=== PATIENT | male | born 1950 | race African-American/Black ===

== ENCOUNTER 2019-06-16 14:32 | Outpatient (CLI) | payer MEDICARE ==
--- NOTE | 2019-06-16 15:44 | ULT ---
Sonogram kidneys HISTORY: Hematuria. FINDINGS: Right kidney measures up to 9.7 cm and the left 10.4 cm. Each has a normal sonographic appe arance without evidence of mass, stone, or hydronephrosis. Prostate gland measures up to 6.6 cm and protrudes into the bladder base. IMPRESSION: No evidence of urinary tract obstruction. Enlarged prostate gland.
== END 2019-06-16 14:33 | disposition home or self-care (01) ==
LOC: BICULT 14:32
PROVIDERS: ATTEND Family Medicine
DX: R31.0 Gross hematuria (principal); N40.0 Benign prostatic hyperplasia without lower urinary tract symptoms
CPT/HCPCS: 76770

== ENCOUNTER 2020-12-06 13:50 | Outpatient (CLI) | payer MEDICARE ==
[2020-12-06 17:31] LABS: Bilirubin Neg (Negative); Blood, Urine Negative (Negative); Clarity Clear (Clear); Glucose, Urine (Dipstick) Normal (Negative); Ketone, Urine Negative (Negative); Leukocyte Negative (Negative); Nitrite Negative (Negative); Protein, Urine (Dipstick) Negative (Neg-Trace); Urobilinogen Normal mg/dL (Less than 2)
[2020-12-06 17:39] LABS: RBC/HPF None Seen HPF (0-3)
[2020-12-07 01:24] LABS: SARS-CoV-2 PCR by NAA Not Detected (NotDetected)
== END 2020-12-06 13:51 | disposition home or self-care (01) ==
LOC: LABBT 13:50
PROVIDERS: ATTEND Urology
DX: Z01.818 Encounter for other preprocedural examination (principal); R97.20 Elevated prostate specific antigen [PSA]; N40.0 Benign prostatic hyperplasia without lower urinary tract symptoms; Z20.822 Contact with and (suspected) exposure to COVID-19
CPT/HCPCS: 81001; 87086; 93005; U0003; U0005; 87635; 93010

== ENCOUNTER 2020-12-10 05:41 | Day surgery (SDC) | payer MEDICARE ==
[2020-12-06 13:01] VITALS: BMI 29.7
[2020-12-10] MEDS ORDERED: cefTRIAXone\\ROCEPHIN 2 GM VIAL ONE (06:06)
[2020-12-10] MEDS ORDERED: Sodium Chloride 0.9% 100 ML ONE (06:06)
[2020-12-10] MEDS ORDERED: Lidocaine 1% (PF) 30 ML VIAL ONE (06:47)
[2020-12-10] MEDS ORDERED: Propofol 1,000 MG/100 ML VIAL IV ONE ×2 (07:04→07:09)
[2020-12-10] MEDS ORDERED: Midazolam HCl 2 mg/2 ml Vial ONE (07:04)
[2020-12-10] MEDS ORDERED: Fentanyl 100 MCG/2 ML VIAL ONE (07:04)
[2020-12-10] MEDS ORDERED: ePHEDrine Sulfate 50 MG/10 ML VIAL ONE (07:22)
== END 2020-12-10 08:58 | disposition home or self-care (01) ==
LOC: SDC 05:41
PROVIDERS: ATTEND Urology
PROC: 0VB03ZX Excision of Prostate, Percutaneous Approach, Diagnostic (ICD-10-PCS; principal; 2020-12-10)
DX: N41.1 Chronic prostatitis (principal); N40.1 Benign prostatic hyperplasia with lower urinary tract symptoms; I10 Essential (primary) hypertension; E78.5 Hyperlipidemia, unspecified; E78.00 Pure hypercholesterolemia, unspecified; G89.29 Other chronic pain; N52.9 Male erectile dysfunction, unspecified; Z86.010 Personal history of colon polyps; Z80.42 Family history of malignant neoplasm of prostate; Z79.82 Long term (current) use of aspirin; Z79.899 Other long term (current) drug therapy
CPT/HCPCS: 88305; J0696; J2001; J2250; J2704; J3010; J3490

== ENCOUNTER 2022-02-22 09:18 | Emergency (ER) | payer MEDICARE ==
[2022-02-22 10:14] LABS: Hemoglobin 13.7 g/dL (14.0-18.0); Mean Corpuscular HGB CONC 31.4 g/dL (32.0-36.0); Mean Corpuscular Hemoglobin 29.7 pg (27.0-31.0); Mean Corpuscular Volume 94.5 fL (78.0-98.0); Mean Platelet Volume 9.2 fL (7.4-10.4); Platelet Count 150 thou/uL (130-400); RBC Distribution Width 11.6 % (11.5-14.5); Red Blood Cell (RBC) Count 4.63 mill/uL (4.70-6.10); White Blood Cell (WBC) Count 3.3 thou/uL (4.8-10.8)
[2022-02-22 10:24] LABS: ALT (SGPT) 25 U/L (8-55); AST (SGOT) 24 U/L (5-34); Albumin 3.8 g/dL (3.4-4.8); Alkaline Phosphatase 82 U/L (40-110); Anion Gap 12 mmol/L (10-20); BUN (Urea Nitrogen) 15 mg/dL (8.4-25.7); Bilirubin, Total 0.8 mg/dL (0.2-1.2); Calc. Creatinine Clearance 0 mL/min (70-130); Carbon Dioxide 26 mmol/L (23-31); Chloride 103 mmol/L (98-107); Globulin 3.4 g/dL (2.4-3.5); Glucose 107 mg/dL (80-115); Potassium 4.1 mmol/L (3.5-5.1); Protein, Total 7.2 g/dL (5.8-8.1); Sodium 137 mmol/L (136-145)
[2022-02-22 10:39] LABS: Eosinophils 2 % (0-10); Lymphocytes 41 % (21-51); MDiff Complete? YES; Monocytes 12 % (0-10); Neutrophil 44 % (42-75); Platelet Morphology Comment Appears Adequate; RBC Morphology Normal; Reactive Lymphocytes 1 % (0-10)
== END 2022-02-22 13:23 | disposition home or self-care (01) ==
LOC: ERS 09:18
DX: R20.2 Paresthesia of skin (principal); R53.1 Weakness; R00.1 Bradycardia, unspecified; I10 Essential (primary) hypertension; E78.00 Pure hypercholesterolemia, unspecified; Z79.899 Other long term (current) drug therapy
CPT/HCPCS: 36415; 80053; 84484; 85025; 93005; 96360

== ENCOUNTER 2022-04-14 10:45 | Emergency (ER) | payer OTHER | END 2022-04-14 11:49 | disposition home or self-care (01) | LOC: ERS 10:45 | DX: S92.514A Nondisplaced fracture of proximal phalanx of right lesser toe(s), initial encounter for closed fracture (principal); E78.5 Hyperlipidemia, unspecified; E78.00 Pure hypercholesterolemia, unspecified; I10 Essential (primary) hypertension; W22.03XA Walked into furniture, initial encounter ==

== ENCOUNTER 2022-06-20 10:47 | Emergency (ER) | payer OTHER ==
[2022-06-20] MEDS ORDERED: Ketorolac Tromethamine 30 MG/ML VIAL ONE (12:38)
[2022-06-20] MEDS ORDERED: Cyclobenzaprine 10 MG TAB ONE (12:38)
== END 2022-06-20 13:00 | disposition home or self-care (01) ==
LOC: ERS 10:47
DX: M54.41 Lumbago with sciatica, right side (principal); I10 Essential (primary) hypertension; E78.5 Hyperlipidemia, unspecified; E78.00 Pure hypercholesterolemia, unspecified; Z79.899 Other long term (current) drug therapy
CPT/HCPCS: 96372; 99282; J1885

== ENCOUNTER 2023-01-04 12:09 | Outpatient (CLI) | payer OTHER | END 2023-01-04 12:10 | disposition home or self-care (01) | LOC: ULT 12:09 | PROVIDERS: ATTEND Psychiatry & Neurology Neurology | DX: I63.89 Other cerebral infarction (principal) | CPT/HCPCS: 93306 ==

== ENCOUNTER 2023-06-16 08:42 | Outpatient (CLI) | payer OTHER ==
[2023-06-16] MEDS ORDERED: Iopamidol 370 76% 100 ML VIAL ONE (11:10)
== END 2023-06-16 08:43 | disposition home or self-care (01) ==
LOC: CT 08:42
PROVIDERS: ATTEND Urology
DX: N40.1 Benign prostatic hyperplasia with lower urinary tract symptoms (principal); N32.89 Other specified disorders of bladder; R31.29 Other microscopic hematuria; R31.0 Gross hematuria; M89.9 Disorder of bone, unspecified; N20.0 Calculus of kidney; G95.89 Other specified diseases of spinal cord; Z90.49 Acquired absence of other specified parts of digestive tract; K57.30 Diverticulosis of large intestine without perforation or abscess without bleeding; Z98.1 Arthrodesis status
CPT/HCPCS: 74178; Q9967

== ENCOUNTER 2023-07-05 08:10 | Outpatient (CLI) | payer OTHER | END 2023-07-05 08:11 | disposition home or self-care (01) | LOC: NM 08:10 | PROVIDERS: ATTEND Urology | DX: R97.20 Elevated prostate specific antigen [PSA] (principal); Z98.890 Other specified postprocedural states | CPT/HCPCS: 78306; A9503 ==

== ENCOUNTER 2023-08-14 07:57 | Emergency (ER) | payer OTHER ==
[2023-08-14 10:23] LABS: SARS-CoV-2 NAA Rapid Test DETECTED (NotDetected)
== END 2023-08-14 10:53 | disposition home or self-care (01) ==
LOC: ERS 07:57
DX: U07.1 COVID-19 (principal); E78.00 Pure hypercholesterolemia, unspecified; I10 Essential (primary) hypertension; Z79.82 Long term (current) use of aspirin; Z20.822 Contact with and (suspected) exposure to COVID-19; Z79.899 Other long term (current) drug therapy
CPT/HCPCS: 0240U; 71045; 99283

== ENCOUNTER 2023-09-03 10:16 | Outpatient (CLI) | payer OTHER | END 2023-09-03 10:17 | disposition home or self-care (01) | LOC: MRI 10:16 | PROVIDERS: ATTEND Urology | DX: R97.20 Elevated prostate specific antigen [PSA] (principal); I63.89 Other cerebral infarction; M89.8X8 Other specified disorders of bone, other site | CPT/HCPCS: 72157 ==

== ENCOUNTER 2023-10-07 08:44 | Day surgery (SDC) | payer OTHER ==
[2023-10-07 08:48] LABS: #Eosinphils 0.1 thou/uL (0.0-0.7); #Monocytes 0.6 thou/uL (0.11-0.59); %Basophils 0.6 % (0.0-1.0); %Eosinophils 2.3 % (0.0-10.0); %Lymphocytes 41.7 % (21.0-51.0); %Neutrophils 42.2 % (42.0-75.0); Hematocrit 42.2 % (42.0-52.0); Hemoglobin 13.4 g/dL (14.0-18.0); Mean Corpuscular HGB CONC 31.8 g/dL (32.0-36.0); Mean Corpuscular Volume 91.3 fl (78.0-98.0); Mean Platelet Volume 10.2 fL (7.4-10.4); Platelet Count 170 10x3/uL (130-400); RBC Distribution Width 12.8 % (11.5-14.5); Red Blood Cell (RBC) Count 4.62 mill/uL (4.70-6.10); White Blood Cell (WBC) Count 4.8 10x3/uL (4.8-10.8)
[2023-10-07 09:03] LABS: INR-International Normal Ratio 1.1; Prothrombin Time 13.7 sec (12.0-14.7)
[2023-10-07 09:04] LABS: PTT 30.4 sec (22.9-36.1)
[2023-10-07] MEDS ORDERED: fentaNYL 50 mcg/mL 1 mL Vial ONE ×2 (09:44→10:08)
[2023-10-07] MEDS ORDERED: Lidocaine 1% PF 5 ML VIAL ONE (09:44)
[2023-10-07] MEDS ORDERED: Sodium Bicarbonate 2.5 MEQ/5 ML SDV ONE (09:44)
[2023-10-07] MEDS ORDERED: Lidocaine 1% w/Epinephrine 1:100K 20 ML VIAL ONE (09:44)
[2023-10-07 11:51] VITALS: BP 161/79; TEMP 98.8
[2023-10-07] MEDS ORDERED: FLU VACC QS2023(65UP)/MF59C/PF 60 MCG/0.5 ML SYRINGE IM ONE (12:00)
== END 2023-10-07 12:05 | disposition home or self-care (01) ==
LOC: CT 08:44
PROVIDERS: ATTEND Internal Medicine
PROC: 0QB30ZX Excision of Left Pelvic Bone, Open Approach, Diagnostic (ICD-10-PCS; principal; 2023-10-07)
DX: D70.4 Cyclic neutropenia (principal); C61 Malignant neoplasm of prostate; M89.9 Disorder of bone, unspecified; C79.51 Secondary malignant neoplasm of bone; I10 Essential (primary) hypertension; E78.00 Pure hypercholesterolemia, unspecified; Z79.82 Long term (current) use of aspirin; Z86.73 Personal history of transient ischemic attack (TIA), and cerebral infarction without residual deficits; Z79.899 Other long term (current) drug therapy
CPT/HCPCS: 20225; 77012; 85025; 85610; 85730; J3010; 36415; 88184; 88185; 88189; 88305; 88333; 88334; 88341; 88342

== ENCOUNTER 2023-11-11 08:48 | Emergency (ER) | payer OTHER ==
[2023-11-11 09:18] LABS: #Monocytes 0.7 thou/uL (0.11-0.59); #Neutrophils 3.4 thou/uL (1.40-6.50); %Basophils 0.5 % (0.0-1.0); %Eosinophils 0.7 % (0.0-10.0); %Lymphocytes 24.5 % (21.0-51.0); %Monocytes 13.1 % (0.0-10.0); %Neutrophils 60.8 % (42.0-75.0); Hematocrit 37.2 % (42.0-52.0); Hemoglobin 12.2 g/dL (14.0-18.0); Mean Corpuscular HGB CONC 32.8 g/dL (32.0-36.0); Mean Corpuscular Hemoglobin 28.8 pg (27.0-31.0); Mean Corpuscular Volume 87.7 fl (78.0-98.0); Mean Platelet Volume 10.2 fL (7.4-10.4); Platelet Count 214 10x3/uL (130-400); RBC Distribution Width 12.2 % (11.5-14.5); Red Blood Cell (RBC) Count 4.24 mill/uL (4.70-6.10); White Blood Cell (WBC) Count 5.6 10x3/uL (4.8-10.8)
[2023-11-11 09:30] LABS: Bacteria/HPF None Seen HPF (None Seen); Bilirubin Negative (Negative); Blood, Urine Trace (Negative); CAUTI Indications for Culture Alt mental st,lethar; Clarity Clear (Clear); Glucose, Urine (Dipstick) Normal (Negative); Ketone, Urine Negative (Negative); Leukocyte Negative Leu/uL (Negative); Nitrite Negative (Negative); Protein, Urine (Dipstick) Negative (Neg-Trace); RBC/HPF 0-3 HPF (0-3); Specific Gravity, Urine 1.002 (1.002-1.036); Squamous Epithelial None Seen HPF (0-3); Urobilinogen Normal mg/dL (Less than 2); WBC/HPF None Seen HPF (0-3)
[2023-11-11 09:38] LABS: ALT (SGPT) 7 U/L (8-55); AST (SGOT) 18 U/L (5-34); Albumin 3.9 g/dL (3.4-4.8); Alkaline Phosphatase 65 U/L (40-110); Anion Gap 13 mmol/L (10-20); BUN (Urea Nitrogen) 11 mg/dL (8.4-25.7); Bilirubin, Total 0.7 mg/dL (0.2-1.2); Calc. Creatinine Clearance 0 mL/min (70-130); Calcium 9.8 mg/dL (7.8-10.44); Carbon Dioxide 25 mmol/L (23-31); Chloride 102 mmol/L (98-107); Estimated GFR 77; Globulin 3.8 g/dL (2.4-3.5); Glucose 92 mg/dL (83-110); Lipase 28 U/L (8-78); Potassium 4.4 mmol/L (3.5-5.1); Protein, Total 7.7 g/dL (5.8-8.1); Sodium 136 mmol/L (136-145)
[2023-11-11 09:39] LABS: Troponin I Less than 0.010 ng/mL (< 0.028)
[2023-11-11 09:42] LABS: Urine Culture Reflex No No
== END 2023-11-11 10:55 | disposition home or self-care (01) ==
LOC: ERS 08:48
DX: R53.1 Weakness (principal); R53.81 Other malaise; I10 Essential (primary) hypertension; E78.00 Pure hypercholesterolemia, unspecified; Z79.82 Long term (current) use of aspirin; Z79.899 Other long term (current) drug therapy; Z79.02 Long term (current) use of antithrombotics/antiplatelets
CPT/HCPCS: 36415; 71045; 80053; 81001; 83690; 83735; 83880; 84484; 85025; 93005

== ENCOUNTER 2024-02-13 12:29 | Inpatient (IN) | payer OTHER ==
[~2024-02-13 12:29] MED LIST: Iopamidol 370 76% 100 ML VIAL ONE
[2024-02-13 13:10] LABS: ALT (SGPT) 14 U/L (8-55); AST (SGOT) 24 U/L (5-34); Albumin 3.3 g/dL (3.4-4.8); Alkaline Phosphatase 79 U/L (40-110); Anion Gap 11 mmol/L (10-20); BUN (Urea Nitrogen) 13 mg/dL (8.4-25.7); Bilirubin, Total 0.6 mg/dL (0.2-1.2); Calc. Creatinine Clearance 0 mL/min (70-130); Carbon Dioxide 24 mmol/L (23-31); Chloride 106 mmol/L (98-107); Estimated GFR 63; Globulin 3.2 g/dL (2.4-3.5); Glucose 109 mg/dL (83-110); Potassium 4.2 mmol/L (3.5-5.1); Protein, Total 6.5 g/dL (5.8-8.1); Sodium 137 mmol/L (136-145)
[2024-02-13 13:13] LABS: #Basophils 0.05 10x3/uL (0.0-0.2); %Basophils 1.4 % (0.0-1.0); %Eosinophils 0.9 % (0.0-10.0); %Lymphocytes 39.1 % (21.0-51.0); %Monocytes 14.5 % (0.0-10.0); %Neutrophils 43.5 % (42.0-75.0); Hematocrit 39.3 % (42.0-52.0); Hemoglobin 12.6 g/dL (14.0-18.0); Mean Corpuscular HGB CONC 32.1 g/dL (32.0-36.0); Mean Corpuscular Hemoglobin 28.7 pg (27.0-31.0); Mean Corpuscular Volume 89.5 fL (78.0-98.0); Mean Platelet Volume 11.5 fL (7.4-10.4); Platelet Count 147 10x3/uL (130-400); RBC Distribution Width 12.6 % (11.5-14.5); Red Blood Cell (RBC) Count 4.39 mill/uL (4.70-6.10); Troponin I 0.011 ng/mL (< 0.028)
[2024-02-13] MEDS ORDERED: Acetaminophen 325 MG TAB PO PRN (15:23)
[2024-02-13 15:42] LABS: Bacteria/HPF None Seen HPF (None Seen); Bilirubin Negative (Negative); Blood, Urine Negative (Negative); CAUTI Indications for Culture Alt mental st,lethar; Clarity Clear (Clear); Glucose, Urine (Dipstick) Normal (Negative); Ketone, Urine Negative (Negative); Leukocyte Negative Leu/uL (Negative); Nitrite Negative (Negative); Protein, Urine (Dipstick) Negative (Neg-Trace); RBC/HPF None Seen HPF (0-3); Specific Gravity, Urine 1.007 (1.002-1.036); Squamous Epithelial None Seen HPF (0-3); Urobilinogen Normal mg/dL (Less than 2); WBC/HPF None Seen HPF (0-3)
[2024-02-13 15:45] LABS: Urine Culture Reflex No No
[2024-02-13 16:57] VITALS: BMI 28.0
[2024-02-13 18:50] LABS: Troponin I 0.015 ng/mL (< 0.028)
[2024-02-13] MEDS: Atorvastatin Calcium 20 MG TAB PO SCH (20:16)
[2024-02-14 05:11] LABS: #Basophils Less than 0.03 10x3/uL (0.0-0.2); %Basophils 0.4 % (0.0-1.0); %Lymphocytes 39.3 % (21.0-51.0); %Monocytes 13.6 % (0.0-10.0); %Neutrophils 45.7 % (42.0-75.0); Hematocrit 38.7 % (42.0-52.0); Hemoglobin 12.4 g/dL (14.0-18.0); Mean Corpuscular Hemoglobin 28.9 pg (27.0-31.0); Mean Corpuscular Volume 90.2 fL (78.0-98.0); Mean Platelet Volume 11.5 fL (7.4-10.4); Platelet Count 154 10x3/uL (130-400); RBC Distribution Width 12.7 % (11.5-14.5); Red Blood Cell (RBC) Count 4.29 mill/uL (4.70-6.10)
[2024-02-14 05:29] LABS: ALT (SGPT) 12 U/L (8-55); AST (SGOT) 22 U/L (5-34); Albumin 3.3 g/dL (3.4-4.8); Alkaline Phosphatase 78 U/L (40-110); Anion Gap 12 mmol/L (10-20); BUN (Urea Nitrogen) 12 mg/dL (8.4-25.7); Bilirubin, Total 0.8 mg/dL (0.2-1.2); Calc. Creatinine Clearance 79 mL/min (70-130); Calcium 9.2 mg/dL (7.8-10.44); Carbon Dioxide 25 mmol/L (23-31); Chloride 105 mmol/L (98-107); Estimated GFR 68; Globulin 3.3 g/dL (2.4-3.5); Glucose 91 mg/dL (83-110); Potassium 3.8 mmol/L (3.5-5.1); Protein, Total 6.6 g/dL (5.8-8.1); Sodium 138 mmol/L (136-145)
[2024-02-14] MEDS: Enoxaparin 40 MG (0.4 mL) SYRINGE SC SCH (08:21)
[2024-02-14] MEDS: Clopidogrel Bisulfate 75 MG TAB PO SCH (08:21)
[2024-02-14] MEDS: Tamsulosin HCl 0.4 MG CAP PO SCH (08:21)
[2024-02-14] MEDS: Sodium Chloride 0.9% 1,000 ML IV SCH (09:09)
[2024-02-14] MEDS: Losartan 25 MG TAB PO SCH (13:55)
[2024-02-14] MEDS: Rosuvastatin 20 MG TAB PO SCH (20:54)
[2024-02-15] MEDS: Losartan 25 MG TAB PO SCH (08:29)
[2024-02-15 12:31] VITALS: BP 166/83; TEMP 98
== END 2024-02-15 14:18 | disposition home or self-care (01) | DRG 68 ==
LOC: ERS 12:29 → 2SW 15:25 → OBSVTOIN 02-15 10:55
PROVIDERS: ADMIT Internal Medicine; ATTEND Internal Medicine
DX: I65.22 Occlusion and stenosis of left carotid artery (principal); I95.2 Hypotension due to drugs; E86.9 Volume depletion, unspecified; I10 Essential (primary) hypertension; N40.0 Benign prostatic hyperplasia without lower urinary tract symptoms; E78.5 Hyperlipidemia, unspecified; T46.5X5A Adverse effect of other antihypertensive drugs, initial encounter; Z86.73 Personal history of transient ischemic attack (TIA), and cerebral infarction without residual deficits; Z79.02 Long term (current) use of antithrombotics/antiplatelets; Z79.899 Other long term (current) drug therapy
CPT/HCPCS: 36415; 70450; 70498; 71045; 80053; 81001; 84145; 84484; 85025; 93005; 93306; 93880; 96372; G0378; J1650; J7050; Q9967